=== PATIENT | female | born 1935 | race Caucasian/White ===

== ENCOUNTER 2016-07-25 11:00 | Emergency (ER) | payer MEDICARE ==
[2016-07-25] MEDS ORDERED: IOPAMIDOL 370 (76%) IV.SOLN 150 ML IV ONE (11:01)
[2016-07-25] MEDS ORDERED: ASPIRIN CHEWTAB 81 MG TABLET ONE (12:03)
[2016-07-25 14:31] LABS: ALB/GLOB RATIO 1.6 (>1.0); ALBUMIN 4.4 gm/dL (3.5-5.7); CALCIUM 10.1 mg/dL (8.6-10.3)
[2016-07-25 14:37] LABS: HEMATOCRIT 39.3 % (37.0-47.0); HEMOGLOBIN 13.4 gm/l (12.0-16.0); MEAN CELL VOLUME 83.8 fl (81.0-99.0); MEAN CORPUSCULAR HEMOGLOBIN 28.6 pg (27.0-31.0)
[2016-07-25 14:38] LABS: ABSOLUTE NEUTROPHIL COUNT 0.5 K/mm3 (1.8-7.7); BASO % 0.7 % (0.2-1.0); EOS % 2.2 % (0.9-2.9); LYMPH % 28.8 % (15-45); MEAN CORPUSCULAR HGB CONC 34.1 g/dl (33.0-37.0); MEAN PLATELET VOLUME 13.1 fl (7.4-10.4); MONO % 4.7 % (4-12); NEUT % 63.1 % (43-75); PLATELET COUNT 132 K/mm3 (130-400); RED CELL DISTRIBUTION WIDTH 12.6 % (11.5-14.5)
--- NOTE | 2016-07-25 22:03 | CT ---
Exam Type: CTA CHEST FOR DISSECTION, CTA ABD/PELVIS Date and Time: 07/25/2016 2:04 PM Clinical information: Chest and back pain Comparison: Chest x-ray on 05/30/2010. Mammogram 09/30/2013. Technique: Contiguous axial 3 mm images of the chest, abdomen and pelvis were obtained after the uneventful CTA administration of 150 mL of [id number]. Sagittal and coronal reformations with high resolution lung algorithm images were also obtained at this time. 3-D volumetric images and maximal intensity projection series were created CT DI: 13.6 DLP: 982.1 FINDINGS: LUNG AND LARGE AIRWAYS: There is a ovoid heterogeneous hypodense lesion extending into the right lower lobe from the inferior hilum measuring approximately 3.2 x 5.3 cm in maximal craniocaudal and transverse dimension on coronal image 53. This has maximal AP dimension of approximately 3.3 cm on axial image 69. Margins are fairly well-circumscribed with some areas of spiculation particularly along the inferior anterior and inferior posterior borders. Extending from this area is a region of consolidative tissue. The segmental bronchus appears to abut and terminate against this lesion as seen on axial image 64. Dependent and atelectatic changes are otherwise noted. Remainder of the lungs are clear. PLEURA: within normal limits. VESSELS: Atheromatous and calcific plaque are noted involving the aorta and branch vessels. No evidence of dissection or aneurysm. HEART: normal size. No pericardial effusion. MEDIASTINUM AND CONI: within normal limits. CHEST WALL AND LOWER NECK: Surgical clips are noted in the right axilla. Thyroid as visualized is normal. ADENOPATHY: Inferior right hilar node on image 61 measures 1.5 x 1.3 cm. No other definite adenopathy is present within the axilla, coni or mediastinum. ABDOMEN: Motion artifact does limit assessment. LIVER: Diffuse fatty infiltration without focal lesion. BILE DUCTS: normal caliber. GALLBLADDER: No calcified gallstones. Normal caliber wall. PANCREAS: within normal limits. SPLEEN: Heterogeneous enhancement compatible with arterial phase imaging. ADRENALS: Low-density adrenal lesion is present on the right measuring 1.7 x 2.1 cm on image 96. Low-density left adrenal lesion is noted along the inferior margin measuring approximately 2.0 x 2.5 cm on axial image 107. KIDNEYS: Peripelvic cysts. PELVIS: REPRODUCTIVE ORGANS: no pelvic masses. Uterus and adnexa are unremarkable. URETERS: within normal limits. BLADDER: within normal limits. BOWEL: Normal caliber. MESENTERIC LYMPH NODES: No enlarged mesenteric lymph nodes. PERITONEUM: no ascites or free air, no fluid collection. VESSELS: Atheromatous and calcific plaque. RETROPERITONEUM: within normal limits. ABDOMINAL WALL: within normal limits. BONES: Multilevel degenerative changes of the spine. No lytic or sclerotic lesions. IMPRESSION: Heterogeneous hypodense lesion is identified within the peripheral right lower lobe abutting and causing termination of subsegmental bronchus as detailed above. 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 Single enlarged node is seen within the inferior right hilum. Additionally, adrenal lesions are present worrisome for metastatic disease. No other areas of metastasis are identified. Per prior mammogram paperwork, patient had prior lumpectomy and radiation for a "benign" lesion. It is doubtful that radiation therapy was provided for benign process, and correlation with medical history for the histology of the primary lesion would be recommended. Other incidental findings as above. Findings were called to Dr. Cote at approximately 1457 hours on 07/25/2016.
== END 2016-07-25 16:11 | disposition home or self-care (01) ==
LOC: ED 11:00
DX: R91.8 Other nonspecific abnormal finding of lung field (principal); E27.9 Disorder of adrenal gland, unspecified; R07.89 Other chest pain; R10.9 Unspecified abdominal pain; E11.9 Type 2 diabetes mellitus without complications; Z79.84 Long term (current) use of oral hypoglycemic drugs; Z87.891 Personal history of nicotine dependence
CPT/HCPCS: 83690; 83880; 85025; 82550; 80053; 84484; 74174; 71275; 99284 ×2; 93005; A9270; Q9967